=== PATIENT | female | born 1995 | race Caucasian/White ===

== ENCOUNTER → 2019-10-30 | Outpatient (CLI) | payer BC | END | disposition home or self-care (01) | LOC: RAD 10:02 | PROVIDERS: ATTEND Nurse Practitioner | DX: R22.42 Localized swelling, mass and lump, left lower limb (principal) ==

== ENCOUNTER 2020-11-27 09:59 | Day surgery (SDC) | payer OTHER ==
[~2020-11-27] VITALS: Ht 160 cm; Wt 69.5 kg
[2020-11-27 10:54] VITALS: BP_SYST 122; BP_SYST 22; BP_DIAS 82
[2020-11-27] MEDS ORDERED: CLONIDINE PO (11:00)
[2020-11-27] MEDS ORDERED: ATENOLOL PO (11:00)
[2020-11-27] MEDS ORDERED: LACTATED RINGERS 1,000 ML IV SCH (11:00)
[2020-11-27] MEDS ORDERED: PARICALCITOL (11:01)
[2020-11-27] MEDS ORDERED: PARICALCITOL PO (11:02)
[2020-11-27 11:09] LABS: HCG UR SG 1.022 (1.003-1.030)
[2020-11-27] MEDS ORDERED: CHLORHEXIDINE 15 ML UDC ONE (11:09)
[2020-11-27] MEDS ORDERED: LIDOCAINE/PF 1%, 30ML ONE (11:13)
[2020-11-27] MEDS ORDERED: BUPIVACAINE/PF 0.5% ONE ×2 (11:13→12:08)
[2020-11-27] MEDS ORDERED: CHLORHEXIDINE 15 ML UDC PO ONE (11:30)
[2020-11-27] MEDS ORDERED: EPINEPHRINE 1 MG/ML, 1ML ONE (12:08)
[2020-11-27] MEDS ORDERED: FENTANYL PF 100 MCG/2ML ONE (12:20)
[2020-11-27] MEDS ORDERED: MIDAZOLAM 1 MG/ML, 2ML ONE (12:20)
[2020-11-27] MEDS ORDERED: PROPOFOL 50 ML ONE ×2 (12:22→12:24)
[2020-11-27] MEDS ORDERED: KETOROLAC 30 MG/1 ML ONE (12:29)
[2020-11-27] MEDS ORDERED: hydrALAzine 20 MG/ML, 1ML IV PRN (13:00)
[2020-11-27] MEDS ORDERED: LABETALOL 5MG/ML, 20ML IV PRN (13:00)
[2020-11-27] MEDS ORDERED: HYDROmorphone 2 MG/ML, 1ML IVPush PRN (13:00)
[2020-11-27] MEDS ORDERED: FENTANYL PF 100 MCG/2ML IV PRN (13:00)
[2020-11-27] MEDS ORDERED: MEPERIDINE/PF 25MG/0.5ML IVPush PRN (13:00)
[2020-11-27] MEDS ORDERED: DIAZEPAM 5 MG/ML, 2ML IVPush PRN (13:00)
[2020-11-27] MEDS ORDERED: ALBUTEROL SULFATE 2.5 MG/3 ML NPPB PRN (13:00)
[2020-11-27] MEDS ORDERED: KETOROLAC 30 MG/1 ML IV PRN (13:00)
[2020-11-27] MEDS ORDERED: ACETAMINOPHEN 325 MG TABLET PO PRN (13:00)
[2020-11-27] MEDS ORDERED: OXYcodone 5 MG/5 ML ORAL.SOL UDC PO PRN (13:00)
[2020-11-27] MEDS ORDERED: PROMETHAZINE 25 MG/ML, 1ML IV PRN (13:00)
[2020-11-27] MEDS ORDERED: GLYCOPYRROLATE 0.2MG/1ML, 5ML ONE (13:19)
[2020-11-27] MEDS ORDERED: ONDANSETRON 2MG/ML, 2ML ONE (13:19)
[2020-11-27] MEDS ORDERED: SUCCINYLCHOLINE 20 MG/ML, 10ML ONE (13:19)
[2020-11-27] MEDS ORDERED: DEXAMETHASONE 4 MG/ML, 1ML ONE (13:19)
[2020-11-27] MEDS ORDERED: NEOSTIGMINE 1 MG/ML, 10ML ONE (13:19)
[2020-11-27] MEDS ORDERED: ROCURONIUM 10MG/ML,5ML ONE (13:19)
[2020-11-27] MEDS ORDERED: PROPOFOL 10 MG/ML, 20ML ONE (13:19)
[2020-11-27] MEDS ORDERED: CEFAZOLIN 1,000 MG ONE (13:19)
== END 2020-11-27 15:23 | disposition home or self-care (01) ==
LOC: OUT 09:59
PROVIDERS: ATTEND Orthopaedic Surgery
DX: M25.572 Pain in left ankle and joints of left foot (principal); M24.672 Ankylosis, left ankle; M65.872 Other synovitis and tenosynovitis, left ankle and foot; I10 Essential (primary) hypertension; E05.00 Thyrotoxicosis with diffuse goiter without thyrotoxic crisis or storm; Z79.899 Other long term (current) drug therapy; Z20.822 Contact with and (suspected) exposure to COVID-19
CPT/HCPCS: 29898; 81025; 87635; J0171; J0690; J1100; J1885; J2250; J2405; J2704; J3010; J7120; J2710; J0330